=== PATIENT | male | born 1965 | race Caucasian/White ===

== ENCOUNTER 2024-04-01 09:15 | Emergency (ER) | payer BC ==
[2024-04-01] VITALS (10 sets, daily range): BP systolic 110–129; BP diastolic 65–78
[~2024-04-01] VITALS: Ht 188 cm; Wt 91.0 kg
[~2024-04-01 09:15] MED LIST: CIPROFLOXACN500 MG PO; METFORMIN500 MG PO; NO
[2024-04-01] MEDS ORDERED: LIDOcaine HCl 1% (Local Anesth.) 20 ML VIAL STI STA (10:19)
[2024-04-01] MEDS ORDERED: POVIDONE IODINE 0.5 OZ/BTL TOP STA (10:19)
[2024-04-01] MEDS ORDERED: SULFAMETHOXAZOLE W/TRIMETHOPRI 1 COMBO TAB PO STA (10:19)
[2024-04-01] MEDS ORDERED: BACTRIM DS1 TAB PO (11:41)
[2024-04-01] MEDS ORDERED: NAPROXEN500 MG PO (11:41)
== END 2024-04-01 12:04 | disposition home or self-care (01) | DRG 607 ==
LOC: ED 09:15
PROC: 0H96XZZ Drainage of Back Skin, External Approach (ICD-10-PCS; principal; 2024-04-01)
DX: L72.3 Sebaceous cyst (principal)

== ENCOUNTER 2024-04-03 08:05 | Emergency (ER) | payer BC ==
[~2024-04-03] VITALS: Ht 188 cm; Wt 98.0 kg
[~2024-04-03 08:05] MED LIST changes: +BACTRIM DS1 TAB PO; +NAPROXEN500 MG PO
[2024-04-03 08:10] VITALS: BP 125/74
[2024-04-03 08:30] VITALS: BP 115/72
[2024-04-03 08:58] VITALS: BP 115/72
== END 2024-04-03 09:03 | disposition home or self-care (01) | DRG 951 ==
LOC: ED 08:05
DX: Z48.01 Encounter for change or removal of surgical wound dressing (principal)